=== PATIENT | male | born 2000 | race Caucasian/White ===

== ENCOUNTER 2020-09-28 20:05 | Emergency (ER) | payer BC ==
[~2020-09-28] VITALS: Ht 170.2 cm; Wt 81.0 kg
[2020-09-28] MEDS ORDERED: LIDOCAINE/EPI/TETRACAINE TOPICAL GEL 3 ML. TP ONE ×2 (20:29→20:30)
[2020-09-28] MEDS ORDERED: DIPH,PERTUSS(ACELL),TET VAC/PF 0.5 ML SYRINGE. VAX IM ONE ×2 (20:29→20:45)
--- NOTE | 2020-09-28 20:29 | PHYS DOC ---
Past History Past Medical History: No Pertinent History Past Surgical History: No Surgical History Alcohol Use: Occasionally Adult General Chief Complaint Chief Complaint: LACERATION/AVULSION HPI HPI Patient is a 20-year-old male who presents with thumb laceration. States he was opening a can of tomato sauce at home just before coming, and cut his thumb on the top of the can. States he is not up-to-date on his tetanus status. Denies any other injuries. States it is pain is approximately 3 out of 10. Denies any need for pain medicine at this time. Review of Systems Review of Systems Review of systems otherwise unremarkable except noted in HPI Current Medications Current Medications Current Medications Medications (Trade) Dose Ordered Sig/Bonnie Start Time Stop Time Status Last Admin Dose Admin Diphtheria/ Pertussis/Tetanus Vacc (ADACEL TDap SYRINGE) 0.5 ml ONCE ONCE 09/28/20 20:30 09/28/20 20:31 UNV Lidocaine/ Epinephrine (Let ([id number]) Gel) 3 ml 1X ONCE 09/28/20 20:30 09/28/20 20:31 UNV Allergies Allergies Allergies Coded Allergies Type Severity Reaction Last Updated Verified No Known Drug Allergies 09/28/20 No Physical Exam Physical Exam Constitutional: Well developed, well nourished, no acute distress, non-toxic appearance. [] Skin: Warm, dry, no erythema, no rash. [] Extremities: Distal left first digit laceration 1.25 cm, superficial, bleeding controlled, no need for suture repair. Neurologic: Alert and oriented X 3, no focal deficits noted. [] Psychologic: Affect normal, judgement normal, mood normal. [] Current Patient Data Vital Signs Vital Signs Date Time Temp Pulse Resp B/P (MAP) Pulse Ox O2 Delivery O2 Flow Rate FiO2 09/28/20 20:10 100.1 69 18 156/84 (108) 98 Room Air EKG EKG [] Radiology/Procedures Radiology/Procedures [] Heart Score C/O Chest Pain: No Risk Factors: Risk Factors: DM, Current or recent (<one month) smoker, HTN, HLP, family h istory of CAD, obesity. Risk Scores: Risk Factors: DM, Current or recent (<one month) smoker, HTN, HLP, family history of CAD, obesity. Course & Med Decision Making Course & Med Decision Making Patient is a 20-year-old male who presents with thumb laceration Vital signs not concerning. Physical exam noted above. Wound superficial. Anesthetized with topical lidocaine. Cleaned. Dermabond placed. Bandaged. Updated tetanus. Gave wound care instruction for home. Advised to follow-up with primary care as needed. Gave return precautions to the ED. Patient grateful, verbalized understanding and agreed with plan of discharge. [] Dragon Disclaimer Dragon Disclaimer This electronic medical record was generated, in whole or in part, using a voice recognition dictation system. Departure Departure: Impression: Primary Impression: Thumb laceration Disposition: HOME / SELF CARE / HOMELESS Condition: GOOD Referrals: MICA GA MD (PCP) Patient Instructions: Fingertip Laceration, Laceration Care, Adult Additional Instructions: Thank you for coming into the emergency department tonight and allowing us to take care of you. You can use Tylenol and ibuprofen at home as well as ice for pain control. Please read all of the wound care instruction also very carefully. As discussed, please limit activity over the next couple of days as to not reopen your wound so refrain from any gripping or grabbing of items such as weightlifting, moving furniture. Please follow-up with your primary care as needed. Please come back to the ED with new or concerning symptoms as discussed. AHSAN FLOR MD Sep 28, 2020 20:29
[2020-09-28 20:55] VITALS: BP 146/80
== END 2020-09-28 20:55 | disposition home or self-care (01) ==
LOC: ER 20:05
DX: S61.012A Laceration without foreign body of left thumb without damage to nail, initial encounter (principal); Z23 Encounter for immunization; W26.8XXA Contact with other sharp object(s), not elsewhere classified, initial encounter; Y93.89 Activity, other specified; Y92.89 Other specified places as the place of occurrence of the external cause; Y99.8 Other external cause status
CPT/HCPCS: 12001; 90471; 90715; 99283-25